=== PATIENT | male | born 1960 | race Caucasian/White ===

== ENCOUNTER 2018-02-23 18:02 | Emergency (ER) | payer OTHER ==
[2018-02-23] MEDS ORDERED: DERMABOND SKIN ADHESIVE TOP ONE (18:47)
--- NOTE | 2018-02-23 18:54 | ER ---
Nurse's Notes [facility] Name: Ajit Kaur Age: 57 yrs Sex: Male : 1960 Arrival Date: 02/23/2018 Time: 18:05 Bed 20 Private MD: Rodrigo Garcia T Diagnosis: Forehead Laceration Presentation: 02/23 18:07 Presenting complaint: Patient states: "I was mowing the yard and I hit my forehead with aa5 a metal pipe". Pt denies LOC. Pt reports laceration to forehead, pressure dressing noted at this time, bleeding controlled. Transition of care: patient was not received from another setting of care. Onset of symptoms was February 23, 2018. Risk Assessment: Do you want to hurt yourself or someone else? Patient reports no desire to harm self or others. Initial Sepsis Screen: Does the patient meet any 2 criteria? No. Patient's initial sepsis screen is negative. Does the patient have a suspected source of infection? No. Patient's initial sepsis screen is negative. Care prior to arrival: None. 18:07 Method Of Arrival: Ambulatory aa5 18:07 Acuity: ARNAUD 4 aa5 18:21 Complicating Factors: There are no complicating factors for this patient. em Historical: - Allergies: 18:09 No Known Allergies; aa5 - PMHx: 18:09 None; aa5 - PSHx: 18:09 Knee surgery; aa5 - Immunization history:: Last tetanus immunization: < 5 years ago. - Social history:: Smoking status: Patient/guardian denies using tobacco. - Ebola Screening: : No symptoms or risks identified at this time. Screenin:21 Abuse screen: Denies threats or abuse. Nutritional screening: No deficits noted. em Tuberculosis screening: No symptoms or risk factors identified. Fall Risk None identified. Assessment: 18:21 General: Appears in no apparent distress. comfortable, Behavior is calm, cooperative. em Pain: Complains of pain in forehead Pain currently is 7 out of 10 on a pain scale. Neuro: Level of Consciousness is awake, alert, obeys commands, Oriented to person, place, time, situation. Cardiovascular: Capillary refill < 3 seconds Patient's skin is warm and dry. Respiratory: Airway is patent Respiratory effort is even, unlabored, Respiratory pattern is regular, symmetrical. GI: Abdomen is flat. : No signs and/or symptoms were reported regarding the genitourinary system. EENT: No signs and/or symptoms were reported regarding the EENT system. Derm: Skin is pink, warm \\T\\ dry. Musculoskeletal: Range of motion: intact in all extremities. Injury Description: Laceration is clean, superficial, 0.5 to 2.5 cm long. Vital Signs: 18:09 BP 139 / 84; Pulse 86; Resp 16 S; Temp 98.2(TE); Pulse Ox 98% on R/A; Weight 83.91 kg aa5 (R); Height 6 ft. 3 in. (190.50 cm) (R); Pain 7/10; 18:09 Body Mass Index 23.12 (83.91 kg, 190.50 cm) aa5 ED Course: 18:05 Patient arrived in ED. as 18:06 Rodrigo Garcia MD is Private Physician. as 18:08 Triage completed. aa5 18:08 Arm band placed on. aa5 18:12 David Storey LVN is Primary Nurse. em 18:16 Derrick Chase PA is PHCP. [facility] 18:16 Cedric Cote MD is Attending Physician. [facility] 18:21 Patient has correct armband on for positive identification. Bed in low position. Call em light in reach. Adult w/ patient. 18:30 Irrigation of laceration on forehead irrigated with Hibiclens solution Patient em tolerated well. 18:40 Assist provider with laceration repair on forehead that was 2.5 cm. or less using em Dermabond. Performed by David Storey LVN Patient tolerated well. 18:54 Rodrigo Garcia MD is Referral Physician. [facility] 19:01 Patient did not have IV access during this emergency room visit. em Administered Medications: No medications were administered Outcome: 18:54 Discharge ordered by . [facility] 19:01 Discharged to home ambulatory, with family. em 19:01 Condition: good 19:01 Discharge instructions given to patient, Instructed on discharge instructions, follow up and referral plans. Demonstrated understanding of instructions, follow-up care. 19:03 Patient left the ED. em Signatures: Derrick Chase PA PA David Ferrara LVN [employer] PROFESSIONAL em Lj, Kelly as Dumont, Cynthia, RN RN aa5 Corrections: (The following items were deleted from the chart) 18:55 18:21 No provider procedures requiring assistance completed. em em
--- NOTE | 2018-02-23 18:54 | EDPHYS ---
Physician Documentation [facility] Name: Ajit Kaur Age: 57 yrs Sex: Male : 1960 Arrival Date: 02/23/2018 Time: 18:05 Bed 20 Private MD: Rodrigo Garcia T ED Physician Cedric Cote HPI: 02/23 18:25 This 57 yrs old Male presents to ER via Ambulatory with complaints of jmm Laceration To Forehead. 18:25 The patient has a laceration occurred at home. The laceration(s) is(are) located on the jmm forehead. Onset: The symptoms/episode began/occurred acutely. Associated signs and symptoms: Pertinent negatives: loss of consciousness. This is a 57 year old male with no chronic medical conditions that presents to the ED with a forehead laceration which occurred after he walked into a metal pole while mowing his lawn. Denies LOC, vomitintg, denies neck pain. . Historical: - Allergies: 18:09 No Known Allergies; aa5 - PMHx: 18:09 None; aa5 - PSHx: 18:09 Knee surgery; aa5 - Immunization history:: Last tetanus immunization: < 5 years ago. - Social history:: Smoking status: Patient/guardian denies using tobacco. - Ebola Screening: : No symptoms or risks identified at this time. ROS: 18:25 Constitutional: Negative for fever, chills, and weight loss, Cardiovascular: Negative jmm for chest pain, palpitations, and edema, Respiratory: Negative for shortness of breath, cough, wheezing, and pleuritic chest pain, Abdomen/GI: Negative for abdominal pain, nausea, vomiting, diarrhea, and constipation. 18:25 Skin: Positive for laceration(s). 18:25 Neuro: Negative for headache. 18:25 All other systems are negative. Exam: 18:25 Eyes: EOMI, no conjunctival erythema appreciated ENT: Moist Mucus Membranes jmm 18:25 Chest/axilla: Normal chest wall appearance and motion. Cardiovascular: Regular rate and rhythm. No edema appreciated Respiratory: Normal respirations, no respiratory distress appreciated Abdomen/GI: Non distended, soft Back: Normal ROM MS/ Extremity: Moves all extremities, no obvious deformities appreciated, no edema noted to the lower extremities Neuro: Awake and alert, normal gait Psych: Behavior is normal, Mood is normal, Patient is cooperative and pleasant 18:25 Constitutional: The patient appears in no acute distress, alert, awake. 18:25 Head/face: Exam is negative for eldridge signs, ecchymosis, raccoon eyes, 3 cm laceration noted to the forehead, non tender to palpation. 18:25 Neck: C-spine: appears grossly normal, ROM/movement: is normal. Vital Signs: 18:09 BP 139 / 84; Pulse 86; Resp 16 S; Temp 98.2(TE); Pulse Ox 98% on R/A; Weight 83.91 kg aa5 (R); Height 6 ft. 3 in. (190.50 cm) (R); Pain 7/10; 18:09 Body Mass Index 23.12 (83.91 kg, 190.50 cm) aa5 Laceration: 20:07 Wound Repair of 3cm ( 1.2in ) subcutaneous laceration to forehead. Distal jmm neuro/vascular/tendon intact. Wound prep: Simple cleansing with hibiclenz by nurse. Skin closed with 1-0 Adhesive skin closure using Dermabond. Patient tolerated well. MDM: 18:24 Patient medically screened. [facility] 18:52 Data reviewed: vital signs, nurses notes. Counseling: I had a detailed discussion with aurelia the patient and/or guardian regarding: the historical points, exam findings, and any diagnostic results supporting the discharge/admit diagnosis, the need for outpatient follow up, to return to the emergency department if symptoms worsen or persist or if there are any questions or concerns that arise at home. Administered Medications: No medications were administered Disposition: 02/23/18 18:54 Discharged to Home. Impression: Forehead Laceration. - Condition is Stable. - Discharge Instructions: Facial Laceration. - Medication Reconciliation Form, Thank You Letter, Antibiotic Education, Prescription Opioid Use form. - Follow up: Rodrigo Garcia MD; When: As needed; Reason: Recheck today's complaints, Continuance of care, Re-evaluation by your physician. Addendum: 02/26/2018 20:38 Co-signature as Attending Physician, Cedric Cote MD. r n Signatures: Derrick Chase PA PA [facility] David Storey, MEDICAL PATHOLOGY TEACHER MEDICAL PATHOLOGY TEACHER em Cote, Cedric, MD MD rn Dumont, Cynthia, RN RN aa5 Corrections: (The following items were deleted from the chart) 02/23 19:03 18:54 02/23/2018 18:54 Discharged to Home. Impression: Forehead Laceration. Condition em is Stable. Forms are Medication Reconciliation Form, Thank You Letter, Antibiotic Education, Prescription Opioid Use. Follow up: Rodrigo Garcia; When: As needed; Reason: Recheck today's complaints, Continuance of care, Re-evaluation by your physician. aurelia
[2018-02-23 19:07] VITALS: BP 139/84; TEMP 98.2; O2SAT 98
== END 2018-02-23 19:03 | disposition home or self-care (01) ==
LOC: ER 18:02
PROC: 0JQ10ZZ Repair Face Subcutaneous Tissue and Fascia, Open Approach (ICD-10-PCS; principal; 2018-02-23)
DX: S01.81XA Laceration without foreign body of other part of head, initial encounter (principal); W22.8XXA Striking against or struck by other objects, initial encounter; Y93.89 Activity, other specified; Y92.017 Garden or yard in single-family (private) house as the place of occurrence of the external cause
CPT/HCPCS: 99283

== ENCOUNTER 2023-01-11 12:20 | Day surgery (SDC) | payer BC ==
--- NOTE | 2023-01-11 12:38 | EKG ---
Test Date: 2023-01-10 Test Time: 15:30:52 Combatant Diver Officer: CLAIRE MEASUREMENT RESULTS: Intervals: Rate: 56 IL: 168 QRSD: 94 QT: 418 QTc: 403 [place]: P: 82 IL: 168 QRS: 58 T: 72 INTERPRETIVE STATEMENTS: Sinus bradycardia Otherwise normal ECG No previous ECG available for comparison Electronically Signed On 01-11-23 12:37:05 CDT by Wicho Lucero
[2023-01-11] MEDS ORDERED: CEFAZOLIN SODIUM 2 GM/VIAL ONE (12:43)
[2023-01-11] MEDS ORDERED: Ringers Lactate 1,000 ML IV ONE ×2 (12:43→14:39)
[2023-01-11] MEDS ORDERED: BUPIVACAINE 0.25% PF 30 ML VIAL ONE (13:22)
[2023-01-11] MEDS ORDERED: LIDOCAINE 2% MPF 5 ML VIAL ONE (13:30)
[2023-01-11] MEDS ORDERED: propofoL 200 MG/20 ML VIAL IV ONE (13:30)
[2023-01-11] MEDS ORDERED: FENTANYL CITR 100 MCG/2 ML ONE (13:30)
[2023-01-11] MEDS ORDERED: KETOROLAC 30 MG/ML INJ ONE (13:30)
[2023-01-11] MEDS ORDERED: MIDAZOLAM HCL 2 MG/2 ML INJ ONE (13:30)
[2023-01-11] MEDS ORDERED: ONDANSETRON 4 MG/2 ML VIAL ONE (13:33)
[2023-01-11] MEDS ORDERED: LIDOCAINE HCL/EPINEPHRINE 20 ML MDV ONE (13:37)
[2023-01-11] MEDS ORDERED: dexAMETHasone 10 MG/ML VIAL ONE (14:01)
--- NOTE | 2023-01-11 14:41 | P.OP ---
Preoperative diagnosis: Foreign Body injury to LEFT Thenar [place] Postoperative diagnosis: Foreign Body injury to LEFT Thenar [place] Primary procedure: LEFT Thenar Exploration Secondary procedure: Excision of granulation tissue Anesthesia: GETA + local Estimated blood loss: <1cc Specimen: debridement tissue Findings: granuloma of LEFT hand, no foreign body noted Complications: None Transferred to: Recovery Room Condition: Good
[2023-01-11 16:35] VITALS: BP 136/80; O2SAT 99
[2023-01-11 16:38] VITALS: TEMP 988
--- NOTE | 2023-01-11 20:42 | OP ---
Date of Procedure: 01/11/2023 Surgeon: Vicente Saeed MD, Preoperative Diagnosis: Foreign body injury to the left thenar eminence. Postoperative Diagnosis: Foreign body injury to the left thenar eminence. Procedures Performed: 1.Left thenar eminence exploration. 2.Excision of granulation tissue. Anesthesia: General endotracheal plus local with 0.25% Marcaine with epinephrine. Estimated Blood Loss: Less than 1 cc. Specimen: Debridement tissue. Findings: There was a granuloma of the left hand. No foreign body was noted. Complications: None. Disposition: Patient was transferred to recovery room in good condition. Procedure In Detail: After informed consent was obtained, patient was brought to the operating room, prepped in the usual fashion. After adequate anesthesia was achieved, I anesthetized the skin circu mferentially around the area where a small punctate opening was on the left hand thenar eminence. It had a small amount of heaped up tissue around this and a punctate center area of clearing almost as a foreign body was evident. I dissected circumferentially around this area and approached with metic ulous combination of predominantly blunt dissection to see if a foreign body could be appreciated in this plane. I dissected circumferentially down to the fascial plane not violating the muscular plane and ultimately circumferentially approached from laterally to see if a foreign body was appreciated as I continued to dissect this and lift this tissue island away from what appeared to be a central ar ea of puncture. As I dissected down, I did not see an obvious foreign body through this area and pul led this tissue island off in its entirety, which is approximately 0.2 cm x 0.2 cm. This was sent of f for pathologic examination. I then inspected the area. There was no evidence of penetration to de eper planes as the fascial planes appeared to be intact without evidence of injury. I palpated the a hernán. No foreign body was appreciated. Preoperatively, patient had an x-ray, which did not show any foreign bodies as well. I continued to palpate the area, inspected for any evidence of puncture or d eep foreign bodies deeper or extending beyond the superficial plane, which was inspected. I did not appreciate any other foreign bodies. No hemostatic measures required. No injury to nerve or tissue was appreciated. Electrocautery was used on a minimal setting on the needle-tip Bovie throughout the procedure. I then irrigated the area copiously after the granulation tissue was removed and reappro ximated the skin edges with interrupted 5-0 Prolene sutures with good approximation of tissues. I th en placed a sterile dressing on top and hand was wrapped. Patient tolerated the procedure well witho ut complication, transferred to PACU in good condition. All counts were correct at the end of the ca se. LONNIE/AP Voice ID: [id number] Report ID: [id number]
== END 2023-01-11 16:15 | disposition home or self-care (01) ==
LOC: OR 12:20
PROVIDERS: ATTEND Surgery
PROC: 0JCK0ZZ Extirpation of Matter from Left Hand Subcutaneous Tissue and Fascia, Open Approach (ICD-10-PCS; principal; 2023-01-11 14:00)
DX: S60.552D Superficial foreign body of left hand, subsequent encounter (principal)
CPT/HCPCS: 93005; 80048; 36415; 88304; 10120; J2704; J2001; J2250; J3010; J1100; J2405; J7120 ×2